=== PATIENT | female | born 1990 | race Caucasian/White ===

== ENCOUNTER → 2017-12-22 | Day surgery (SDC) | payer OTHER ==
[~2017-12-22] MED LIST: ACETAMINOPHEN 1000 MG/100 ML 100 ML IV ONE; KETOROLAC TROMETHAMINE 30 MG/ML (IVP) VIAL IV PUSH ONE; LACTATED RINGER'S 1000 ML INJ 1,000 ML ONE; LIDOCAINE HCL 1% 50 ML VIAL ONE; MEPERIDINE HCL 50 MG/ML VIAL ONE; MIDAZOLAM HCL 2 MG/2 ML VIAL ONE; MORPHINE SULFATE 2 MG/ML SYRINGE ONE; ONDANSETRON HCL 4 MG/2 ML VIAL IV PUSH ONE; PROPOFOL 200 MG/20 ML AMP IV ONE; ceFAZolin INJ 1,000 MG VIAL ONE
--- NOTE | 2017-12-22 13:44 | TN ---
cc: Dae Winkler MD DATE OF SURGERY: 12/22/2017 DATE OF PROCEDURE: 12/22/2017 PREOPERATIVE DIAGNOSIS: Lipodystrophy of the torso, as well as inner thighs and knees. POSTOPERATIVE DIAGNOSIS: Lipodystrophy of the torso, as well as inner thighs and knees. PROCEDURE PERFORMED: SlimLipo. SURGEON: Dae Winkler MD, [facility] ANESTHESIA: LMA general. ESTIMATED BLOOD LOSS: Minimal. TOTAL ENERGY UTILIZED: 60,000 joules. COMPLICATIONS: None. TOTAL IN AND OUT: Approximately 2200 in, total 2000 out. PROCEDURE IN DETAIL: She was brought in and consented, marked, and anesthetized. The skin was sterilized with Betadine solution and sterile draping was applied. Utilizing the 11 blade, 2 punctures were appropriately performed in order to deliver the tumescent fluid with utilizing the formula follows, 1000 mL of normal saline, 30 mL of 1% lidocaine with epinephrine was mixed with 1 mL epinephrine 1:1000. Approximately 2000 mL was tumesced and the energy was delivered with the SlimLipo 20/20 for a grand total of 60,000 joules in which 40,000 was utilized in the torso and 20,000 in the inner thighs and knees. The evacuation took place utilizing a 3.5 and 2.5 mm cannula and each and every one of the puncture wounds were closed utilizing a 5-0 chromic suture and a Steri-Strip applied. Good viability of the tissue was noted at the end of the case. A snug girdle was applied thereafter. She was awakened, extubated in the operating room and transferred to Postanesthesia Care Unit in stable condition. No complication appreciated. The patient tolerated the procedure fairly well. MD DODIE Serra/EDINSON , 01:24 PM , 01:43 PM
== END | disposition home or self-care (01) ==
LOC: ESDC 10:25
PROVIDERS: ATTEND Plastic Surgery
DX: Z41.1 Encounter for cosmetic surgery (principal)
CPT/HCPCS: 00300; 00400; 15877; 15879; J0131; J0690; J1885; J2175; J2250; J2270; J2405; J3010; J7120